=== PATIENT | female | born 2000 | race African-American/Black ===

== ENCOUNTER 2021-12-27 19:51 | Emergency (ER) | payer OTHER ==
[2021-12-27 20:14] VITALS: BP 102/63; PULSE 111; TEMP 98.2; BMI 25.7
[2021-12-27] MEDS ORDERED: SODIUM CHLORIDE 0.9% 500 ML INFUS.BAG IV ONE (21:13)
[2021-12-27] MEDS ORDERED: ONDANSETRON 4 MG/2 ML VIAL IVPUSH ONE (21:13)
[2021-12-27] MEDS ORDERED: FAMOTIDINE 20 MG/50 ML IVPB 20 MG/50 ML MG IVPB ONE (21:13)
[2021-12-27] MEDS ORDERED: ACETAMINOPHEN 1000 MG/100 ML BAG IVPB ONE (21:26)
[2021-12-27] MEDS ORDERED: FAMOTIDINE 10 MG/ML VIAL IVPB ONE (22:08)
[2021-12-27 22:16] LABS: BASO % 0.2 % (0-2.0); HEMATOCRIT 43.9 % (32.4-45.2); HEMOGLOBIN 14.4 GM/dL (10.7-15.3); LYMPH % 5.5 % (8-40); MCH 27.4 pg (25.7-33.7); MCHC 32.8 g/dl (32.0-36.0); MEAN CELL VOLUME 83.6 fl (80-96); MEAN PLT VOLUME 10.2 fl (7.5-11.1); MONO % 5.9 % (3.8-10.2); NEUT % 88.4 % (42.8-82.8); PLATELET COUNT 264 10^3/uL (134-434); RBC 5.25 M/mm3 (3.60-5.2); RDW 13.6 % (11.6-15.6); WHITE BLOOD COUNT 7.8 K/mm3 (4.0-10.0)
[2021-12-27 22:35] LABS: CHLORIDE 105 mmol/L (98-107); SODIUM 136 mmol/L (136-145)
[2021-12-27 22:36] LABS: CALCIUM 8.8 mg/dL (8.5-10.1)
[2021-12-27 22:38] LABS: ALBUMIN 3.9 g/dl (3.4-5.0); ANION GAP 9 MMOL/L (8-16); BLOOD UREA NITROGEN 9.3 mg/dL (7-18); CO2 22 mmol/L (21-32); GLUCOSE,RANDOM 80 mg/dL (74-106); LIPASE 99 U/L (73-393)
[2021-12-27 22:40] LABS: CREATININE 0.6 mg/dL (0.55-1.3); SGOT/AST 20 U/L (15-37); SGPT/ALT 25 U/L (13-61)
[2021-12-27 22:42] LABS: BILIRUBIN,TOTAL 0.6 mg/dL (0.2-1); TOT PROT 7.3 g/dl (6.4-8.2)
[2021-12-27 22:44] LABS: ALK PHOS 68 U/L (45-117)
== END 2021-12-27 23:52 | disposition home or self-care (01) ==
LOC: JERFT 19:51 → JER 19:51
PROC: 3E0333Z Introduction of Anti-inflammatory into Peripheral Vein, Percutaneous Approach (ICD-10-PCS; principal; 2021-12-27)
PROC: 3E033GC Introduction of Other Therapeutic Substance into Peripheral Vein, Percutaneous Approach (ICD-10-PCS; 2021-12-27)
PROC: 3E033GC Introduction of Other Therapeutic Substance into Peripheral Vein, Percutaneous Approach (ICD-10-PCS; 2021-12-27)
DX: R11.2 Nausea with vomiting, unspecified (principal); R19.7 Diarrhea, unspecified; R10.11 Right upper quadrant pain
CPT/HCPCS: 36415; 76705-TC; 80053; 83690; 84702; 85025; 99284-25